=== PATIENT | male | born 1965 | race Two or more races ===

== ENCOUNTER → 2018-05-19 | Outpatient (CLI) | payer OTHER ==
--- NOTE | 2018-05-19 09:15 | RAD ---
COMPLETE ABDOMEN ULTRASOUND STUDY Clinical indications: Epigastric pain for a couple of months. FINDINGS: The tail of the pancreas is obscured by overlying bowel gas. The rest of the pancreas is homogeneous without focal enlargement. No focal aneurysmal dilatation of the abdominal aorta is seen. The intrahepatic portion of the IVC is unremarkable. The gallbladder is normal without gallstones. The extra hepatic bile duct measures 3.6 mm in caliber which is normal. There is attenuation of sound throughout the liver which may be seen with fatty infiltration of the liver. This decreases the sensitivity of sonography to detect focal hepatic lesions. No focal hepatic mass is seen sonographically otherwise. The liver measures 17.5 cm in length which is normal. The length of the right kidney is 11.0 cm and the length of the left kidney is 11.3 cm. No hydronephrosis or renal mass or perinephric fluid collection is seen on either side. The spleen measures 12.2 cm in length and is homogeneous. No ascites is seen. IMPRESSION: Fatty infiltration of the liver. Electronically signed by: Miguel A Hernandez MD (05/19/2018 9:11 AM) [id number]
--- NOTE | 2018-05-19 13:19 | RAD ---
CT of the head without contrast, 05/19/2018: HISTORY: Headache, blurry vision The ventricles are within normal limits in size. There is no shift of the midline structures. There is no evidence of acute intracranial hemorrhage or mass effect. Minimal basal ganglia calcification is present on the left. IMPRESSION: No acute intracranial abnormality is detected. Electronically signed by: Kashif Laird MD (05/19/2018 1:16 PM) [facility]
== END | disposition home or self-care (01) ==
LOC: US 07:27
PROVIDERS: ATTEND Family Medicine
DX: K76.0 Fatty (change of) liver, not elsewhere classified (principal); R51 Headache
CPT/HCPCS: 70450; 76700

== ENCOUNTER → 2018-06-11 | Outpatient (CLI) | payer OTHER ==
[~2018-06-11] VITALS: Ht 175.3 cm; Wt 95.3 kg
[~2018-06-11] MED LIST: LISI-338 PO; SINCALIDE 2 MCG in IV NORMAL SALINE 50ML 30 ML IV ONE
--- NOTE | 2018-06-11 12:13 | RAD ---
INDICATION: Abdominal pain for 3 months. TECHNIQUE: Hepatobiliary scintigraphy utilized 5.5 mCi technetium 99m labeled Choletec IV. Gallbladder ejection fraction was calculated after administration of 2.0 mcg IV CCK. FINDINGS: There is prompt uptake of radiotracer by the hepatic parenchyma with gallbladder activity visualized by 15 minutes. Bowel activity is visualized. Gallbladder ejection fraction post CCK administration is 96 percent. IMPRESSION: Normal hepatobiliary scintigraphy with normal gallbladder ejection fraction. Electronically signed by: Ashwin Rogers MD (06/11/2018 12:09 PM) [facility]
== END | disposition home or self-care (01) ==
LOC: NM 07:48
PROVIDERS: ATTEND Internal Medicine Gastroenterology
DX: R10.13 Epigastric pain (principal)
CPT/HCPCS: 78226; 96374; 96375; A9537; J2805

== ENCOUNTER → 2021-07-21 | Outpatient (CLI) | payer OTHER ==
[2018-11-28 10:50] VITALS: BP 137/78
[~2021-07-21] MED LIST changes: +BUDE10.2 INH; +DILT120C4 PO; +FLUT16SP21 NS; -LISI-338 PO; +LISI-517 PO; +LISI1TAB23 PO; -SINCALIDE 2 MCG in IV NORMAL SALINE 50ML 30 ML IV ONE
--- NOTE | 2021-07-21 14:44 | RAD ---
Examination: Bilateral venous Doppler Indication: Leg swelling Technique: Ultrasound evaluation of the bilateral lower extremities was performed from the groin to t he upper calf with carl scale, spectral and color doppler evaluation. Comparison: None Findings: There is normal venous flow and compressibility of bilateral common femoral veins, femoral veins, popliteal veins, and visualized proximal calf veins. Impression: No evidence for deep vein thrombosis of bilateral lower extremities from the level of the calf veins to the groins. Electronically signed by: Douglas Gonzalez MD (07/21/2021 2:41 PM) [facility]
== END ==
LOC: US 12:11
PROVIDERS: ATTEND Family Medicine
DX: R22.43 Localized swelling, mass and lump, lower limb, bilateral (principal)
CPT/HCPCS: 93970